=== PATIENT | female | born 1930 | race Two or more races ===

== ENCOUNTER 2018-10-27 13:29 | Emergency (ER) | payer OTHER ==
[~2018-10-27] VITALS: Ht 157.5 cm; Wt 49.4 kg
[~2018-10-27 13:29] MED LIST: ANTIVERT12.5 MG PO; CATAFLAM50 MG PO; GLIMEPIRIDE2 MG
[2018-10-27] MEDS ORDERED: GLIMEPIRIDE4 MG PO (14:07)
[2018-10-27] MEDS ORDERED: BETOPTIC S10 ML OP (14:08)
[2018-10-27] MEDS ORDERED: ASPIR 8181 MG PO (14:08)
[2018-10-27] MEDS ORDERED: PLAVIX75 MG PO (14:09)
[2018-10-27] MEDS ORDERED: EZETIMIBE-SIMV1 EAC3 PO (14:09)
[2018-10-27] MEDS ORDERED: COZAAR50 MG PO (14:09)
== END 2018-10-27 15:50 | disposition home or self-care (01) ==
LOC: ER 13:29
DX: J11.1 Influenza due to unidentified influenza virus with other respiratory manifestations (principal)